=== PATIENT | male | born 1990 | race Caucasian/White ===

== ENCOUNTER 2023-04-06 18:15 | Emergency (ER) | payer BC ==
[~2023-04-06] VITALS: Ht 177.8 cm; Wt 73.0 kg
[2023-04-06] MEDS ORDERED: CYCLOBENZAPRINE 10 MG TABLET ONE (18:59)
[2023-04-06] MEDS ORDERED: KETOROLAC TROMETHAMINE INJ 30 MG/ML VIAL ONE (18:59)
[2023-04-06] MEDS ORDERED: CYCLOBENZAPRINE 10 MG TABLET PO ONE (19:00)
[2023-04-06] MEDS ORDERED: KETOROLAC TROMETHAMINE INJ 60 MG/2 ML VIAL IM ONE (19:00)
[2023-04-06] MEDS ORDERED: CYCL5TAB PO (20:59)
[2023-04-06] MEDS ORDERED: TRAM-351 PO (20:59)
[2023-04-06 21:20] VITALS: BP 134/80; TEMP 98; O2SAT 100
== END 2023-04-06 21:21 | disposition home or self-care (01) ==
LOC: ER 18:20
DX: S13.4XXA Sprain of ligaments of cervical spine, initial encounter (principal); M54.2 Cervicalgia; M54.50 Low back pain, unspecified; F41.9 Anxiety disorder, unspecified; Z79.899 Other long term (current) drug therapy; Z60.2 Problems related to living alone; V89.0XXA Person injured in unspecified motor-vehicle accident, nontraffic, initial encounter; Y93.89 Activity, other specified; Y92.89 Other specified places as the place of occurrence of the external cause; Y99.8 Other external cause status
CPT/HCPCS: 99285; 72125; 96372; 72131; 72128; J1885